=== PATIENT | female | born 1965 | race Caucasian/White ===

== ENCOUNTER 2017-01-09 10:05 | Outpatient (CLI) | payer OTHER ==
[~2017-01-09] VITALS: Ht 170.2 cm; Wt 112.6 kg
[~2017-01-09 10:05] MED LIST: ASPIRIN 32325 MG/TAB PO; COMBIRESP IH; COZAAR100 MG PO; DETROL LA4 PO; EFFEXOR XR75 MG/CAP PO; HCTZ 25MG TAB25 MG PO; LIPITOR 40MG TA40 MG PO; PRIL40 PO; PROAIR HFA0.09 MG/AC IH
[2017-01-09 10:48] VITALS: BP 165/104; PULSE 97
[2017-01-09 11:59] VITALS: BP 134/78; PULSE 86
[2017-01-09 12:10] VITALS: BP 134/78; PULSE 86
[2017-01-09 12:30] VITALS: BP 140/80; PULSE 85
[2017-01-09 13:00] VITALS: BP 150/87; PULSE 88
[2017-01-09 13:30] VITALS: BP 138/88; PULSE 89
[2017-01-09 14:30] LABS: CEREBROSPINAL TUBE #4
[2017-01-09 15:26] LABS: CSF APPEARANCE CLEAR; CSF COLOR COLORLESS
[2017-01-13 10:06] LABS: CSF,IGG 7.7 mg/dL (<=8.1)
[2017-01-13 10:36] LABS: ALBUMIN CSF 24.3 mg/dL (<=27.0); CSF IGG/ALBUMIN 0.32 (<=0.21)
[2017-01-13 10:48] LABS: CSF SYNTHESIS RATE 17.98 mg/24 h (<=12); CSF-IGG INDEX 0.94 (<=0.85); IGG/ALBUMIN SERUM 0.34 (<=0.40)
== END 2017-01-09 15:00 | disposition home or self-care (01) ==
LOC: COL.RAD 10:05
PROVIDERS: Psychiatry & Neurology Neurology
DX: G35 Multiple sclerosis (principal)

== ENCOUNTER 2017-12-25 15:00 | Outpatient (RCR) | payer OTHER ==
[2017-12-23 15:02] VITALS: BP 158/89; PULSE 113; TEMP 98.2
[2017-12-24 15:08] VITALS: BP 149/94; PULSE 114; TEMP 98.8
[~2017-12-25] VITALS: Ht 170.2 cm; Wt 106.8 kg
[2017-12-25 14:59] VITALS: BP 132/85; PULSE 105; TEMP 99.2
[~2017-12-25 15:00] MED LIST changes: +AUBAGIO14 MG PO; +GLUCOPHAGE500 MG/TAB PO; +NORVASC 5MG5 MG/TAB PO; +SYNTHROID0.05 MG/TA PO; +VITAMIND3 5000 PO; +ZANAFLEX 4MG TAB4 MG PO
== END 2017-12-25 16:35 | disposition home or self-care (01) ==
LOC: EUO 15:00
DX: G35 Multiple sclerosis (principal)
CPT/HCPCS: J2930; J7050

== ENCOUNTER 2018-01-03 07:54 | Outpatient (RCR) | payer OTHER ==
[~2018-01-03] VITALS: Ht 170.2 cm; Wt 105.5 kg
[2018-01-03 07:53] VITALS: BP 154/96; PULSE 91; TEMP 98.7
[2018-01-03] MEDS ORDERED: SOLU-MEDRO1000 MG/1 IJ (09:16)
[2018-01-05 11:11] VITALS: BP 128/80; PULSE 100; TEMP 98.3
== END 2018-01-05 13:24 | disposition home or self-care (01) ==
LOC: EUO 01-05 11:00
DX: G35 Multiple sclerosis (principal)
CPT/HCPCS: J2930; J7050

== ENCOUNTER 2019-05-12 16:05 | Observation (INO) | payer BC ==
[~2019-05-12 16:05] MED LIST changes: +SOLU-MEDRO1000 MG/1 IJ
[2019-05-12 20:35] VITALS: BP 153/97; PULSE 102; TEMP 98.5
[2019-05-13] VITALS: BP 151/89; PULSE 81; TEMP 98.3
--- NOTE | 2019-05-13 01:56 | NUR ---
Patient resting well tonight. Medication rec completed. Patient ambulates to the bathroom. No fluids running. No complaints of pain. Collection device put in toilet, patient stated she had voided before the "hat" was put in there. Vitals stable. Will continue to monitor patient.
[2019-05-13 03:50] VITALS: BP 154/90; PULSE 75; TEMP 98.1
[2019-05-13 06:48] LABS: HEMATOCRIT 39.3 % (37.0-47.0); MEAN CELL VOLUME 96 fl (80.0-100.0); MEAN CORPUSCULAR HEMOGLOBIN 32 pg (27.0-31.0); MEAN CORPUSCULAR HGB CONC 33 g/dl (33.0-37.0); MEAN PLATELET VOLUME 8.8 fl (7.4-10.4); PLATELET COUNT 234 K/mm3 (130-400); RED BLOOD COUNT 4.11 M/mm3 (4.10-5.30); REDCELL DISTRIBUTION WIDTH-CV 13.2 % (11.5-14.5)
[2019-05-13 07:02] LABS: CALCIUM 9.1 mg/dL (8.4-10.2); CREATININE, serum 0.61 (0.52-1.25); POTASSIUM 3.5 mmol/L (3.4-5.0)
[2019-05-13 07:27] VITALS: BP 151/87; PULSE 83; TEMP 98.6
--- NOTE | 2019-05-13 08:57 | NUR ---
SARAH met with the patient to discuss discharge plan. The patient lives in [place] with her life partner of eleven years, Cole Velasco (ph#[phone]). She reports independence with ADLs and does not have any DME. The patient's PCP is Dr. Jason Villagomez and she receives her medications at [facility]. She reports no difficulties obtaining her meds. The patient does not have advanced completed, but she was interested in obtaining a form for [facility]. SARAH provided. The patient states that her next of kin and the person she would want to designate is her brother, Alejandro Suarez (ph#[phone]). The patient plans to return home with her life partner upon discharge. No additional needs at this time.
--- NOTE | 2019-05-13 09:30 | NUR ---
Patient alert and oriented, answers questions appropriately. No c/o abdominal pain or pressure. No c/o urinary burning, frequency or hesitancy. No c/o at this time.
--- NOTE | 2019-05-13 12:39 | NUR ---
Discharge instructions reviewed with patient, verbalized understanding. Discharged ambulatory to auto/home at 1150.
== END 2019-05-13 11:50 | disposition home or self-care (01) ==
LOC: SURG 16:05
PROVIDERS: ADMIT Surgery
DX: K57.32 Diverticulitis of large intestine without perforation or abscess without bleeding (principal); N82.3 Fistula of vagina to large intestine; E11.9 Type 2 diabetes mellitus without complications; I10 Essential (primary) hypertension; J44.9 Chronic obstructive pulmonary disease, unspecified; E66.9 Obesity, unspecified; G35 Multiple sclerosis; E03.9 Hypothyroidism, unspecified; E78.00 Pure hypercholesterolemia, unspecified; F17.210 Nicotine dependence, cigarettes, uncomplicated; Z90.710 Acquired absence of both cervix and uterus; Z79.82 Long term (current) use of aspirin; Z79.84 Long term (current) use of oral hypoglycemic drugs
CPT/HCPCS: G0378; G0379

== ENCOUNTER 2019-06-07 09:03 | Inpatient (IN) | payer BC ==
[~2019-06-07] VITALS: Ht 170.2 cm; Wt 94.8 kg
[~2019-06-07 09:03] MED LIST changes: -SYNTHROID0.05 MG/TA PO; +TIROSINT50 MC1 PO
[2019-06-23] VITALS (9 sets, daily range): BP systolic 98–158; BP diastolic 65–105; PULSE 85–110; TEMP 98.1–99.3
[2019-06-23 11:08] LABS: BASO % 0.6 % (0.0-2.0); EOS # 0.1 (0.0-0.7); EOS % 1.7 % (0-4.0); GRAN % 71.2 % (42.2-75.2); HEMATOCRIT 45.8 % (37.0-47.0); HEMOGLOBIN 15.3 g/dl (12.5-16.0); LYMPH # 1.4 (1.2-3.4); LYMPH % 19.3 % (20.0-51.0); MEAN CELL VOLUME 96 fl (80.0-100.0); MEAN CORPUSCULAR HEMOGLOBIN 32 pg (27.0-31.0); MEAN CORPUSCULAR HGB CONC 33 g/dl (33.0-37.0); MEAN PLATELET VOLUME 9.3 fl (7.4-10.4); MONO # 0.5 (0.1-0.6); MONO % 7.1 % (1.7-9.3); PLATELET COUNT 244 K/mm3 (130-400); RED BLOOD COUNT 4.75 M/mm3 (4.10-5.30); REDCELL DISTRIBUTION WIDTH-CV 13.3 % (11.5-14.5)
[2019-06-23 11:14] LABS: CALCIUM 9.8 mg/dL (8.4-10.2); CREATININE, serum 0.66 (0.52-1.25); POTASSIUM 3.7 mmol/L (3.4-5.0)
[2019-06-23] MEDS ORDERED: MOTRIN 800800 MG/TAB PO (11:56)
--- NOTE | 2019-06-23 18:15 | NUR ---
Patient is back from surgery 175. She is alert and oriented. She has 5 lapsites to abdomen and one low abdomen transverse incision. Patient denies pain and nausea at this time. Explained plan for this evening. Explained she can not have anything with carbonation or straws. She verbalized understanding. No other changes at this time. Call light within reach.
--- NOTE | 2019-06-23 23:56 | NUR ---
Pt. sitting up in bed at this time. Pt. is A&OX3, assessment complete. INT to lt. hand patent. Pt. has been up walking the halls with standby assist, and has had 2 bowel movements. Pt. reported pain during evening meds. Pt. reported pain at a 7 on pain scale, gave pain meds per orders. Pt. denies further needs at this time. Call light within reach.
[2019-06-24 03:21] VITALS: BP 113/65; PULSE 91; TEMP 98.6
[2019-06-24 07:13] VITALS: BP 125/69; PULSE 86; TEMP 98.1
[2019-06-24 07:16] LABS: HEMOGLOBIN 13.3 g/dl (12.5-16.0)
[2019-06-24 07:19] LABS: CREATININE, serum 0.71 (0.52-1.25); MAGNESIUM 1.8 mg/dL (1.6-2.3); PHOSPHOROUS 3.7 mg/dL (2.5-4.5); POTASSIUM 3.7 mmol/L (3.4-5.0)
[2019-06-24 11:02] VITALS: BP 107/67; PULSE 84; TEMP 99.3
--- NOTE | 2019-06-24 12:45 | NUR ---
Initial visit; Patient thanked [employer] for offering God's blessings and to be included on [employer]'s prayer list.
--- NOTE | 2019-06-24 13:50 | NUR ---
front worker met with patient to discuss discharge planning. Patient states she lives with her life partner and will return home, in [place], upon discharge. Patient states her primary care provider is Dr Edgar in [place] and patient denies difficulty obtaining her prescriptions. Patient has a DNR order on file in the medical record.
[2019-06-24 15:26] VITALS: BP 121/78; PULSE 100; TEMP 98.8
--- NOTE | 2019-06-24 18:00 | NUR ---
Patient has been doing well today. Lehman catheter discontinued. She has been voiding without problems. No complaints of nausea. Her only complaint is that her right lower quadrant continues to be very painful, even with pain medications. Her IV was accidently pulled, it got caught in her blankets. Tolerating general diet well. She has ambulated several times in the hallways. No other changes at this time. Call light within reach.
--- NOTE | 2019-06-24 18:36 | NUR ---
Reported on to JOSE Hastings @1400. Pt has been ambulating the halls with visitors this shift and moves independently in room. Pt is currently resting well in bed with call light and personal belongings within reach. Reported off to JOSE Hastings @7031. MYNOR PEDRAZA
[2019-06-24 20:00] VITALS: BP 135/78; PULSE 102; TEMP 97.5
--- NOTE | 2019-06-24 21:45 | NUR ---
Pt. laying in bed at this time. Pt. is A&OX3, assessment complete. Abd. incisions CDI. Pt. reports pain at a 3 on pain scale at this time. Pt. would like pain medication with evening meds, will give per orders. Pt. denies further needs, call light within reach.
[2019-06-25] VITALS (8 sets, daily range): BP systolic 90–122; BP diastolic 55–72; PULSE 67–98; TEMP 97.3–99
--- NOTE | 2019-06-25 06:21 | NUR ---
Pt. slept off and on through the night. Pt. remains A&OX3. Pt. reported pain at a 8 on pain scale. Reminded pt. that she also has the Ultram available. if needed. Pt. voices understanding. Pt. reports that the pain to the RLQ is very sharp. Pt. was given pain meds. See mar. Pt. denies further needs, call light within reach.
--- NOTE | 2019-06-25 08:00 | NUR ---
UPON ENTRY TO THE ROOM THE PATIENT IS SITTING UP IN BED. PATIENT IS A&OX4. VSS. BOWEL SOUNDS ACTIVE ALL FOUR QUADRANTS. PATIENT TOLERATING DIET WITHOUT COMPLAINTS OF N/V. ABDOMINAL LAP SITES X5 REECE WITH EDGES WELL APPROXIMATED. LOW ABDOMINAL TRANSVERSE INCISION REECE WITH EDGES WELL APPROXIMATED. POSITIVE PEDAL PULSES EQUAL BILATERALLY. PATIENT REPORTS MULTIPLE EPISODES OF DIARRHEA THIS MORNING. CALL LIGHT WITHIN REACH. PATIENT DENIES ANY OTHER NEEDS AT THIS TIME.
--- NOTE | 2019-06-25 18:25 | NUR ---
Reported on to JOSE Griffith @1400. Pt has been pleasant and active this shift. Has had no complaints. Resting well in bed watching television with call-light within reach. Reported off to JOSE Griffith @4240. MYNOR PEDRAZA.
--- NOTE | 2019-06-25 19:00 | NUR ---
REPORT GIVEN TO JOSE HENLEY.
--- NOTE | 2019-06-25 19:12 | NUR ---
Report received from JOSE Griffith
--- NOTE | 2019-06-25 21:50 | NUR ---
Resting in bed. Assessment completed. Lungs clear. Heart sounds normal. Bowels active x4. Pulses strong throughout. No edema noted. X5 lap sites and lower transverse all open to air and CDI. Reports 7/10 pain, provided with PRN oxycodone. Denies other needs at this time. Ambulating in hallway after assessment.
[2019-06-26 04:00] VITALS: BP 130/80; PULSE 80; TEMP 97.9
--- NOTE | 2019-06-26 06:41 | NUR ---
Patient had uneventful night. Required one dose of oxycodone. Resting in bed this AM. Call light in reach.
--- NOTE | 2019-06-26 07:03 | NUR ---
Report given to JOSE Griffith
[2019-06-26 07:10] VITALS: BP 122/73; PULSE 82; TEMP 98.2
--- NOTE | 2019-06-26 08:00 | NUR ---
UPON ENTRY TO THE ROOM THE PATIENT IS SITTING UP IN BED. PATIENT IS A&OX4. VSS. BOWEL SOUNDS ACTIVE ALL FOUR QUADRANTS. PATIENT TOLERATING DIET WITHOUT COMPLAINTS OF N/V. ABDOMINAL LAP SITES X5 REECE WITH EDGES WELL APPROXIMATED. LOW ABDOMINAL TRANSVERSE INCISION REECE WITH EDGES WELL APPROXIMATED. POSITIVE PEDAL PULSES EQUAL BILATERALLY. PATIENT REPORTS MULTIPLE EPISODES OF DIARRHEA THIS MORNING, BUT STATES THAT IT'S BETTER THAN IT HAS BEEN. CALL LIGHT WITHIN REACH. PATIENT DENIES ANY OTHER NEEDS AT THIS TIME.
--- NOTE | 2019-06-26 11:20 | NUR ---
DISCHARGE INSTRUCTIONS REVIEWED WITH PATIENT. ALL QUESTIONS ANSWERED. PATIENT PERSONAL BELONGINGS GATHERED. PATIENT AMBULATED WITH SURGICAL STAFF TO PERSONAL VEHICLE. PATIENT DISCHARGED.
== END 2019-06-26 11:20 | disposition home or self-care (01) | DRG 330 ==
LOC: SURG 06-23 10:12
PROVIDERS: ADMIT Surgery
PROC: 4A1 Measurement and Monitoring, Physiological Systems, Monitoring (ICD-10-PCS; 2019-06-23)
PROC: 0DTN4ZZ Resection of Sigmoid Colon, Percutaneous Endoscopic Approach (ICD-10-PCS; principal; 2019-06-24)
PROC: 0DNV4ZZ Release Mesentery, Percutaneous Endoscopic Approach (ICD-10-PCS; 2019-06-24)
PROC: 8E0W3CZ Robotic Assisted Procedure of Trunk Region, Percutaneous Approach (ICD-10-PCS; 2019-06-24)
PROC: 0DJD8ZZ Inspection of Lower Intestinal Tract, Via Natural or Artificial Opening Endoscopic (ICD-10-PCS; 2019-06-24)
DX: N82.3 Fistula of vagina to large intestine (principal); K57.32 Diverticulitis of large intestine without perforation or abscess without bleeding; E11.9 Type 2 diabetes mellitus without complications; I10 Essential (primary) hypertension; J44.9 Chronic obstructive pulmonary disease, unspecified; E03.9 Hypothyroidism, unspecified; G35 Multiple sclerosis; E78.00 Pure hypercholesterolemia, unspecified; Z79.82 Long term (current) use of aspirin; Z90.710 Acquired absence of both cervix and uterus
CPT/HCPCS: A4314; J0360; J0690; J1650; J1885; J2250; J2405; J2704; J2765; J2795; J3010; J7030; J7120